=== PATIENT | female | born 1940 | race Caucasian/White ===

== ENCOUNTER 2018-03-15 11:29 | Observation (INO) | payer OTHER ==
[~2018-03-15] VITALS: Ht 152.4 cm; Wt 100.4 kg
[2018-03-15 12:01] LABS: HEMATOCRIT 42.8 % (36.0-46.0); HEMOGLOBIN 14.8 G/DL (11.9-15.5); MCH 33.4 PG (29.0-34.0); MCHC 34.6 G/DL (30.0-36.0); MCV 96.6 FL (83-99); PLATELET COUNT 301 K/uL (156-360); RBC DIS.WIDTH-CV 14.6 % (11.8-14.6); RBC DIS.WIDTH-SD 52.2 % (39-53); RED BLOOD COUNT 4.43 M/uL (3.80-5.20)
[2018-03-15 12:13] LABS: CHLORIDE 101 mEq/L (99-109); POTASSIUM 4.7 mEq/L (3.7-5.4); SODIUM 141 mEq/L (136-147)
[2018-03-15 12:15] LABS: GLUCOSE 85 mg/dL (70-99)
[2018-03-15 12:19] LABS: CREATININE 0.8 mg/dL (0.6-1.3); GFR ESTIMATE (CALCULATED) > 59 mL/min/
[2018-03-15 12:20] LABS: UREA NITROGEN (BUN) 34 mg/dL (9-23)
[2018-03-15 14:48] LABS: APPEARANCE CLEAR ((CLEAR)); BILIRUBIN NEGATIVE; BLOOD NEGATIVE; COLOR YELLOW ((YELLOW)); GLUCOSE (STRIP) NEGATIVE; KETONES NEGATIVE; LEUKOCYTES TRACE; NITRITE POSITIVE; PROTEIN (STRIP) NEGATIVE; SPECIFIC GRAVITY 1.017 (1.000-1.030); UROBILINOGEN 0.2 MG/DL (0.2-1.0)
[2018-03-15 14:53] LABS: BACTERIA RARE /HPF; EPITHELIAL CELLS RARE /HPF; MUCUS TRACE /LPF; RED BLOOD CELLS 0-5 /HPF (0-5)
[2018-03-15] MEDS ORDERED: PERCOCET 10/1 TABLET PO (16:13)
[2018-03-15] MEDS ORDERED: MOBIC15 MG PO (16:13)
[2018-03-15] MEDS ORDERED: FLEXERIL10 MG PO (16:14)
[2018-03-15] MEDS ORDERED: NEURONTIN300 MG PO (16:16)
[2018-03-15] MEDS ORDERED: CYMBALTA60 MG PO (16:16)
[2018-03-15] MEDS ORDERED: ONE DAILY MUL400 MCG PO (16:18)
[2018-03-15] MEDS ORDERED: NITROFURANTOIN50 MG PO (16:19)
[2018-03-15] MEDS ORDERED: PRILOSEC20 MG PO (16:20)
[2018-03-15] MEDS ORDERED: DESYREL 150 MG150 MG PO (16:21)
[2018-03-15] MEDS ORDERED: EFFEXOR75 MG PO (16:21)
[2018-03-15] MEDS ORDERED: ALDACTONE25 MG PO (16:21)
[2018-03-15] MEDS ORDERED: DECADRON4 M1 PO (16:26)
[2018-03-15 16:29] LABS: BASOPHIL (%) 0.2 % (0-1); BASOPHIL COUNT 0.1 K/uL (0-0.1); EOSINOPHIL (%) 0 % (0-5); IMMATURE GRANULOCYTE (%) 1.6 % (0.0-0.7); LYMPHOCYTE (%) 8.4 % (15-42); LYMPHOCYTE COUNT 1.8 K/uL (1.0-2.8); MONOCYTE (%) 11.3 % (3-12); MONOCYTE COUNT 2.4 K/uL (0-0.8); NEUTROPHIL (%) 78.5 % (45-76); NEUTROPHIL COUNT 16.5 K/uL (1.8-6.4)
[2018-03-15 18:14] VITALS: BP 173/83
[2018-03-16 00:53] VITALS: BP 147/75
[2018-03-16 04:42] VITALS: BP 187/82
[2018-03-16 05:11] LABS: HEMATOCRIT 40.1 % (36.0-46.0); HEMOGLOBIN 13.4 G/DL (11.9-15.5); MCH 32.7 PG (29.0-34.0); MCHC 33.4 G/DL (30.0-36.0); MCV 97.8 FL (83-99); PLATELET COUNT 293 K/uL (156-360); RBC DIS.WIDTH-CV 15.1 % (11.8-14.6); RBC DIS.WIDTH-SD 54.2 % (39-53); WHITE BLOOD COUNT 13.3 K/uL (4.1-10.2)
[2018-03-16 05:37] LABS: CHLORIDE 104 MEQ/L (99-109); CREATININE 0.8 MG/DL (0.6-1.3); GFR ESTIMATE (CALCULATED) > 59 mL/min/; GLUCOSE 86 mg/dL (70-99); POTASSIUM 3.8 MEQ/L (3.7-5.4); SODIUM 141 MEQ/L (136-147); UREA NITROGEN (BUN) 24 mg/dL (9-23)
[2018-03-16 09:32] VITALS: BP 139/72
[2018-03-16 16:46] VITALS: BP 151/87
[2018-03-16 20:00] VITALS: BP 120/68
[2018-03-17] VITALS: BP 127/55
[2018-03-17 04:00] VITALS: BP 145/70
[2018-03-17 06:50] VITALS: BP 138/60
[2018-03-17] MEDS ORDERED: CEFDINIR300 MG PO (09:24)
[2018-03-17] MEDS ORDERED: LOPRESSOR25 MG PO (09:24)
[2018-03-17] MEDS ORDERED: PERCOCET 10/1 TABLET PO ×2 (09:26→09:57)
[2018-03-17] MEDS ORDERED: XANAX0.25 MG PO (09:31)
== END 2018-03-17 16:10 ==
LOC: EME 11:29 → 4SOUTH 15:45 → EDOF 15:45 → ENRESERV 15:49 → 4SOUTH 17:59 → ENPENDDIS 03-17 → 4SOUTH 03-17 16:10
PROVIDERS: Nurse Practitioner Family
DX: N39.0 Urinary tract infection, site not specified (principal); G93.40 Encephalopathy, unspecified; F41.9 Anxiety disorder, unspecified; R53.1 Weakness; G89.29 Other chronic pain; M54.9 Dorsalgia, unspecified; I10 Essential (primary) hypertension; E78.5 Hyperlipidemia, unspecified; E03.9 Hypothyroidism, unspecified; K21.9 Gastro-esophageal reflux disease without esophagitis; F32.9 Major depressive disorder, single episode, unspecified; Z86.711 Personal history of pulmonary embolism; I25.2 Old myocardial infarction; Z87.440 Personal history of urinary (tract) infections; Z90.710 Acquired absence of both cervix and uterus; Z96.653 Presence of artificial knee joint, bilateral; Z95.828 Presence of other vascular implants and grafts; Z82.49 Family history of ischemic heart disease and other diseases of the circulatory system; Z82.3 Family history of stroke; Z83.3 Family history of diabetes mellitus
CPT/HCPCS: 71045; 72132; 80048; 81003; 83605; 85025; 85027; 87077; 87086; 87186; 99281; 99285; G0378; G8978 GP CM; G8979 CJ; G8980 GP CM; G8987 GO CM; G8988 GO CL; G8989 GO CM; J0744; J1644; J1885; J7030